=== PATIENT | male | born 2000 | race African-American/Black ===

== ENCOUNTER 2022-01-07 23:28 | Observation (INO) | payer SELFPAY ==
[2022-01-07] MEDS ORDERED: Ondansetron PF 4 MG/2 ML Vial ONE (23:50)
[2022-01-07] MEDS ORDERED: Morphine 4 MG/ML VIAL ONE (23:50)
[2022-01-08 01:01] LABS: #Lymphocytes 1.2 thou/uL (1.20-3.40); #Monocytes 0.5 thou/uL (0.11-0.59); %Basophils 0.2 % (0.0-1.0); %Eosinophils 0.3 % (0.0-10.0); %Lymphocytes 17.8 % (21.0-51.0); %Monocytes 7.8 % (0.0-10.0); Hemoglobin 14.1 g/dL (14.0-18.0); Mean Corpuscular HGB CONC 33.3 g/dL (32.0-36.0); Mean Corpuscular Hemoglobin 29.1 pg (27.0-31.0); Mean Corpuscular Volume 87.3 fL (78.0-98.0); Mean Platelet Volume 7.9 fL (7.4-10.4); Platelet Count 223 thou/uL (130-400); RBC Distribution Width 11.7 % (11.5-14.5); Red Blood Cell (RBC) Count 4.87 mill/uL (4.70-6.10); White Blood Cell (WBC) Count 6.8 thou/uL (4.8-10.8)
[2022-01-08 01:14] LABS: ALT (SGPT) 8 U/L (8-55); AST (SGOT) 21 U/L (5-34); Albumin 4.5 g/dL (3.5-5.0); Alkaline Phosphatase 49 U/L (40-110); Anion Gap 13 mmol/L (10-20); BUN (Urea Nitrogen) 9 mg/dL (8.9-20.6); Bilirubin, Total 1.1 mg/dL (0.2-1.2); Calc. Creatinine Clearance 0 mL/min (70-130); Calcium 9.8 mg/dL (7.8-10.44); Carbon Dioxide 24 mmol/L (22-29); Chloride 106 mmol/L (98-107); Estimated GFR 85; Globulin 2.8 g/dL (2.4-3.5); Glucose 94 mg/dL (70-105); Potassium 4.2 mmol/L (3.5-5.1); Protein, Total 7.3 g/dL (6.0-8.3); Sodium 139 mmol/L (136-145)
[2022-01-08] MEDS ORDERED: Ondansetron PF 4 MG/2 ML Vial IVP PRN ×2 (02:00→08:55)
[2022-01-08] MEDS ORDERED: Sodium Chloride 0.9% 1,000 ML IV SCH (02:00)
[2022-01-08] MEDS ORDERED: Morphine 4 MG/ML VIAL SLOW IVP PRN ×2 (02:00→08:55)
[2022-01-08] MEDS ORDERED: Ondansetron ODT 4 MG TAB SL PRN (02:00)
[2022-01-08] MEDS ORDERED: Morphine 2 MG/ML VIAL ONE ×2 (02:37→05:13)
[2022-01-08 02:50] LABS: SARS-CoV-2 NAA Rapid Test DETECTED (NotDetected)
[2022-01-08 02:57] VITALS: BMI 23.6
[2022-01-08] MEDS ORDERED: Ondansetron PF 4 MG/2 ML Vial ONE ×2 (05:07→07:47)
[2022-01-08] MEDS ORDERED: ceFAZolin 2 GM/Dextrose 50 ML 2 GM in Premix Bag 1 BAG IVPB SCH (07:15)
[2022-01-08] MEDS ORDERED: Bupivacaine/Epinephrine 0.25% 30 ML VIAL ONE (07:22)
[2022-01-08] MEDS ORDERED: fentaNYL Citrate/PF 100 MCG/2 ML SYRINGE ONE (07:24)
[2022-01-08] MEDS ORDERED: Phenylephrine 10 MG/ML VIAL ONE (07:47)
[2022-01-08] MEDS ORDERED: PROPOFOL 200 MG/20 ML VIAL ONE (07:47)
[2022-01-08] MEDS ORDERED: Dexamethasone 20 MG/5 ML VIAL ONE (07:47)
[2022-01-08] MEDS ORDERED: Ketorolac Tromethamine 30 MG/ML VIAL ONE (07:47)
[2022-01-08] MEDS ORDERED: Lidocaine 1% PF 5 ML VIAL ONE (07:47)
[2022-01-08] MEDS ORDERED: Rocuronium Bromide 10 MG/ML (10ML VIAL) ONE (07:47)
[2022-01-08] MEDS ORDERED: Succinylcholine 200 MG/10 ml SYRINGE FS ONE (07:47)
[2022-01-08 08:18] LABS: SARS-CoV-2 NAA Rapid Test Not Detected (NotDetected)
[2022-01-08] MEDS ORDERED: Dextrose 5% in Water 1,000 ML IV PRN (08:55)
[2022-01-08] MEDS ORDERED: Promethazine HCl 25 MG/ML VIAL IM PRN ×2 (08:55→09:27)
[2022-01-08] MEDS ORDERED: Dextrose 50% Abboject 50 ML SYRINGE SLOW IVP PRN (08:55)
[2022-01-08] MEDS ORDERED: hydrALAZINE 20 MG/ML VIAL SLOW IVP PRN (08:55)
[2022-01-08] MEDS ORDERED: Ondansetron HCl/PF 4 MG/2 ML Vial IVP PRN (09:27)
[2022-01-08] MEDS ORDERED: Promethazine HCl 25 MG/ML VIAL IVPB PRN (09:27)
[2022-01-08] MEDS ORDERED: Piperacillin/Tazobactam 3.375 GM in Sodium Chloride 0.9% 100 ML IVPB SCH ×2 (12:00→12:15)
[2022-01-08] MEDS: D5 1/2 NS w/20 mEq KCL 1,000 ML IV SCH ×2 (12:26→17:35)
[2022-01-08] MEDS: Famotidine/PF 20 mg/2ml Vial SLOW IVP SCH ×2 (12:26→19:16)
[2022-01-08] MEDS: Famotidine 20 MG TAB PO SCH ×2 (12:26→19:15)
[2022-01-08] MEDS: Piperacillin/Tazobactam 3.375 GM in Sodium Chloride 0.9% 100 ML IVPB SCH ×2 (17:33→23:31)
[2022-01-08] MEDS: Morphine 2 MG/ML VIAL SLOW IVP PRN ×2 (19:16→23:29)
[2022-01-09] MEDS: D5 1/2 NS w/20 mEq KCL 1,000 ML IV SCH ×2 (03:33→15:55)
[2022-01-09 05:14] LABS: #Lymphocytes 1.8 thou/uL (1.20-3.40); #Monocytes 1.4 thou/uL (0.11-0.59); #Neutrophils 6.6 thou/uL (1.40-6.50); %Basophils 0.3 % (0.0-1.0); %Eosinophils 0.2 % (0.0-10.0); %Lymphocytes 18.2 % (21.0-51.0); %Monocytes 13.8 % (0.0-10.0); %Neutrophils 67.5 % (42.0-75.0); Hemoglobin 12.7 g/dL (14.0-18.0); Mean Corpuscular HGB CONC 32.4 g/dL (32.0-36.0); Mean Corpuscular Volume 89.5 fL (78.0-98.0); Mean Platelet Volume 8.1 fL (7.4-10.4); Platelet Count 187 thou/uL (130-400); RBC Distribution Width 11.5 % (11.5-14.5); Red Blood Cell (RBC) Count 4.38 mill/uL (4.70-6.10); White Blood Cell (WBC) Count 9.8 thou/uL (4.8-10.8)
[2022-01-09 05:24] LABS: Anion Gap 11 mmol/L (10-20); BUN (Urea Nitrogen) 9 mg/dL (8.9-20.6); Calc. Creatinine Clearance 91 mL/min (70-130); Calcium 8.6 mg/dL (7.8-10.44); Carbon Dioxide 25 mmol/L (22-29); Chloride 104 mmol/L (98-107); Estimated GFR 80; Glucose 106 mg/dL (70-105); Potassium 3.9 mmol/L (3.5-5.1); Sodium 136 mmol/L (136-145)
[2022-01-09] MEDS: Piperacillin/Tazobactam 3.375 GM in Sodium Chloride 0.9% 100 ML IVPB SCH ×2 (08:27→16:22)
[2022-01-09] MEDS: Famotidine 20 MG TAB PO SCH (08:31)
[2022-01-09] MEDS: Famotidine/PF 20 mg/2ml Vial SLOW IVP SCH ×2 (08:31→08:34)
[2022-01-09] MEDS ORDERED: Enoxaparin Sodium 40 MG/0.4 ML SYRINGE SC SCH (09:00)
[2022-01-09 16:30] VITALS: BP 120/70; TEMP 96.7
[2022-01-09] MEDS ORDERED: Acetaminophen 325 MG TAB PO PRN (16:53)
== END 2022-01-09 19:08 | disposition home or self-care (01) ==
LOC: ERS 23:28 → ERHOLD 01-08 00:29 → SURG A 01-08 08:02 → 2SW 01-08 10:11
PROVIDERS: ADMIT Surgery; ATTEND Surgery
PROC: 0YU50JZ Supplement Right Inguinal Region with Synthetic Substitute, Open Approach (ICD-10-PCS; principal; 2022-01-08)
DX: K40.30 Unilateral inguinal hernia, with obstruction, without gangrene, not specified as recurrent (principal); U07.1 COVID-19; F17.290 Nicotine dependence, other tobacco product, uncomplicated
CPT/HCPCS: 36415; 36416; 71045; 80048; 80053; 85025; 96374; 96375; 96376; C1781; G0378; J1100; J1650; J1885; J2270; J2370; J2405; J2543; J2704; J3480; J3490; J7050; S0028; U0002